=== PATIENT | female | born 1940 | race Caucasian/White ===

== ENCOUNTER → 2021-02-25 | Outpatient (CLI) | payer OTHER | LOC: ECHO 11:35 | DX: R01.1 Cardiac murmur, unspecified (principal); I07.1 Rheumatic tricuspid insufficiency; I27.20 Pulmonary hypertension, unspecified | CPT/HCPCS: ECHO; 93306 ==

== ENCOUNTER → 2021-08-27 | Outpatient (CLI) | payer OTHER | LOC: KOH-I 14:20 | DX: N18.9 Chronic kidney disease, unspecified (principal); N26.1 Atrophy of kidney (terminal) | CPT/HCPCS: 76775 ==